=== PATIENT | female | born 1995 | race Asian ===

== ENCOUNTER 2019-05-03 15:39 | Emergency (ER) | payer OTHER ==
[2019-05-03] MEDS ORDERED: Tetan/Diph/Pertus SYR(Tdap)* 0.5 ML SYR(BOOSTRIX) use SYR IM ONE (19:35)
--- NOTE | 2019-05-03 19:36 | ED ---
Laceration/Wound HPI - HPI Summary HPI Summary: 23-year-old female presents with laceration to left arm yesterday. She states that she has been cutting herself to reduce stress. She denies any suicidal or homicidal ideation. She has psychiatrist and does not want mental health exam at this time. She denies any fevers or chills. No spreading redness. No rash. - History of Current Complaint Stated Complaint: LAC LT ARM PER PT Time Seen by Provider: 05/03/19 19:12 Pain Intensity: 3 - Allergy/Home Medications Allergies/Adverse Reactions: Allergies Allergy/AdvReac Type Severity Reaction Status Date / Time aspirin Allergy Swelling Verified 05/03/19 15:47 ibuprofen Allergy Swelling Verified 05/03/19 15:47 PMH/Surg Hx/FS Hx/Imm Hx Endocrine/Hematology History: Denies: Hx Anticoagulant Therapy Respiratory History: Reports: Hx Asthma Infectious Disease History: No Infectious Disease History: Denies: Traveled Outside the [place] in Last 30 Days - Family History Known Family History: Positive: Non-Contributory - Social History Alcohol Use: Occasionally Smoking Status (MU): Unknown if Ever Smoked Review of Systems Negative: Fever Negative: Chest Pain Negative: Shortness Of Breath Positive: Other - left arm laceration All Other Systems Reviewed And Are Negative: Yes Physical Exam Triage Information Reviewed: Yes Vital Signs On Initial Exam: Initial Vitals Temp Pulse Resp BP Pulse Ox 99.5 F 107 16 139/93 97 05/03/19 15:41 05/03/19 15:41 05/03/19 15:41 05/03/19 15:41 05/03/19 15:41 Vital Signs Reviewed: Yes Appearance: Positive: Well-Appearing Skin: Positive: Warm, Dry, Other - 4cm by 1/2cm laceration to left forearm, 3cm superficial laceration adjacent to large laceration Head/Face: Positive: Normal Head/Face Inspection Eyes: Positive: Normal, Conjunctiva Clear ENT: Positive: Pharynx normal Respiratory/Lung Sounds: Positive: Clear to Auscultation, Breath Sounds Present Cardiovascular: Positive: Normal, RRR Musculoskeletal: Positive: Strength/ROM Intact - left arm Neurological: Positive: Normal Psychiatric: Positive: Normal Procedures - Laceration/Wound Repair 1 Location: Other - left forearm Length, Depth and Shape: 4cm by 1/2cm Irrigated w/ Saline (ccs): 50 Closure: SteriStrips Diagnostics - Vital Signs Vital Signs Temp Pulse Resp BP Pulse Ox 05/03/19 17:21 97.9 F 74 16 127/52 98 05/03/19 15:41 99.5 F 107 16 139/93 97 - Laboratory Lab Statement: Any lab studies that have been ordered have been reviewed, and results considered in the medical decision making process. Laceration Repair Course/Dx - Course Course Of Treatment: 23-year-old female presents with laceration to left arm yesterday. She states that she has been cutting herself to reduce stress. She denies any suicidal or homicidal ideation. She has psychiatrist and does not want mental health exam at this time. She denies any fevers or chills. No spreading redness. No rash. On exam has 4 cm by half centimeter laceration of left forearm with couple superficial surrouding. Clean lacerations and place Steri-Strip on large laceration. Unable to close laceration due to length of time that have been open. Told to watch for signs of infection. Patient understands agrees with plan. - Differential Dx Differental Diagnoses: Abrasion, Avulsion, Laceration - Clinical Impression Provider Diagnoses: Laceration of left upper arm Discharge - Sign-Out/Discharge Documenting (check all that apply): Patient Departure Patient Received Moderate/Deep Sedation with Procedure: No - Discharge Plan Condition: Good Disposition: HOME Patient Education Materials: Laceration Without Closure (ED) Referrals: Non Staff,Doctor [Primary Care Provider] - Additional Instructions: Keep dry for 24 hours sterristips will fall off on own Avoid scrubbing area Use sunscreen on area after laceration has healed apply neosporin, keep covered, change dressing daily Return to ED if develop any signs of infection or any new or worsening symptoms - Billing Disposition and Condition Condition: GOOD Disposition: Home
[2019-05-03 19:47] VITALS: BP 131/80
== END 2019-05-03 19:46 | disposition home or self-care (01) ==
LOC: ED 15:39
DX: S41.112A Laceration without foreign body of left upper arm, initial encounter (principal); Y28.9XXA Contact with unspecified sharp object, undetermined intent, initial encounter; Z23 Encounter for immunization
CPT/HCPCS: 12002; 90471; 90715; 99281